=== PATIENT | male | born 1965 | race Caucasian/White ===

== ENCOUNTER 2021-01-22 17:20 | Emergency (ER) | payer BC, SELFPAY ==
[2021-01-22 17:29] VITALS: BP 142/81; PULSE 107; RESP 24; TEMP 37.1; O2SAT 98; BMI 35.2
[2021-01-22 17:34] VITALS: BP 142/80; PULSE 107; RESP 22; TEMP 37.1; O2SAT 98; BMI 27.3
--- NOTE | 2021-01-22 17:45 | HMH.EDUTC ---
[facility] Disposition Clinical Impression: Pneumonia Qualifiers: Pneumonia type: due to unspecified organism Laterality: unspecified laterality Lung location: unspecified part of lung Qualified Code(s): J18.9 - Pneumonia, unspecified organism Disposition: Home, Self-Care Condition on Discharge: Good Instructions: Pneumonia-Adult Additional Instructions: Stop the amoxicillin that you are on. Start the augmentin (amoxicillin/clavulanate) and the azithromycin (z-pack). Don't start the oral steroids (medrol dose pack) until tomorrow. Continue to take the tessalon perles and loratidine as directed. Follow up with your primary care doctor in 24 to 48 hours from now for a recheck. GO TO THE ER FOR ANY WORSENING SYMPTOMS OR CONCERNS) Prescriptions: Amoxicillin/Potassium Clav [Augmentin 875-125 Tablet] 1 tab PO Q12H 10 Days #20 tab Transmission Status: Received by [id number] methylPREDNISolone [Medrol] 4 mg PO DIRECTED 6 Days #21 tab.ds.pk Transmission Status: Received by [id number] Azithromycin [Z-Leonel 250mg Tab*] 250 mg PO UD DOSE PK #6 tab Transmission Status: Received by [id number] Referrals: Arleen Au [Primary Care Provider] - Time of Disposition: 18:26 Medical Decision Making - Medical Records Medical records reviewed: No: I reviewed the patient's medical records. - Mahamed Inquiry Pt receiving controlled substance: No Vital Signs: 01/22/21 17:29 01/22/21 17:34 01/22/21 18:21 Temperature 98.8 F 98.8 F 98.8 F Temperature Source Oral Oral Oral Pulse Rate 90 Pulse Rate [Radial] 107 H 107 H Respiratory Rate 24 22 20 Blood Pressure 140/70 Blood Pressure [Right Arm] 142/81 H 142/80 H Blood Pressure Mean [Right Arm] 101 100 Blood Pressure Source Automatic Cuff Blood Pressure Source [Right Arm] Automatic Cuff Blood Pressure Position Sitting Blood Pressure Position [Right Arm] Sitting 02 Sat by Pulse Oximetry 98 98 Oxygen Delivery Method Room Air Room Air Room Air Orders (Tests/Meds): ED MEDICATIONS Discontinued Medications Generic Name Dose Route Start Last Admin Trade Name Freq PRN Reason Stop Dose Admin Ceftriaxone Sodium 1 gm 01/22/21 18:13 01/22/21 18:21 Ceftriaxone 1gm Vial IM 01/22/21 18:14 1 gm ONCE ONE Administration Protocol Lidocaine HCl 0 ml 01/22/21 18:13 01/22/21 18:21 Lidocaine 1% 5ml Pf Vial IM 01/22/21 18:14 2.1 ml ONCE ONE Administration Methylprednisolone Sodium Succinate 125 mg 01/22/21 18:13 01/22/21 18:21 Methylprednisolone Sod Succ 125mg Vial IM 01/22/21 18:14 125 mg ONCE ONE Administration ORDERS Category Date Time Status Chest XR 2 view (NOT portable) [XR chest 2V] Stat Exams 01/22/21 17:49 Taken - Radiology Data #1 Image(s): Chest Image Reviewed: Yes I reviewed the patient's radiology image Preliminary Findings: No Infiltrates Seen [facility] HPI - General Stated complaint: Congestion;Cough Time Seen by Provider: 01/22/21 17:45 Mode of Arrival: Ambulatory Source of Information: Patient Limitations: No Limitations Description of Symptoms (Recalled from Triage Doc. by RN): TO ED PER [facility] WITH C/O COUGH, CHEST CONGESTION X3 DAYS. PT SEEN AT AN URGENT CARE YESTERDAY AND GIVEN SCRIPT FOR AMOX. PT STATES HAS TAKEN 3 TABS SINCE FILLED. PT DENIES FEVER, CHILLS. HEENT Symptoms (Recalled from RN notes): Yes Resp Symptoms (Recalled from RN notes): No Skin Symptoms (Recalled from RN notes): No MS Symptoms (Recalled from RN notes): No Functional Status (Recalled from RN notes): na - History of Present Illness Provider Complaint: He states that he has had a cough and shortness of breath for the past 2 days. He has a history of getting pneumonia easily. - Related Data Previous Rx's Medication Instructions Recorded Amoxicillin/Potassium Clav 1 tab PO Q12H 10 Days #20 tab 01/22/21 [Augmentin 875-125 Tablet] Azithromycin [Z-Leonel 250mg Tab*] 250 mg PO UD
--- NOTE | 2021-01-22 17:49 | XR_ITS ---
PROCEDURE: XR CHEST 2V CLINICAL HISTORY: cough, short of breath COMPARISON: No exams were available for comparison FINDINGS: The cardiomediastinal silhouette and pulmonary vascularity are within normal limits. Minor multifocal ill distinct infiltrates noted in the right mid and left lower zones. No lobar consolidation, pleural effusions or pneumothorax. No acute bony abnormalities. IMPRESSION: Minor multifocal in distinct infiltrates in the right mid and left lower zones. Minor atypical infection/inflammation should be considered. Dictated by: Mónica Louis 01/23/2021 08:15 Mónica Louis in OV 01/23/2021 08:15
[2021-01-22 18:21] VITALS: BP 140/70; PULSE 90; RESP 20; TEMP 37.1; O2SAT 98
== END 2021-01-22 18:35 | disposition home or self-care (01) ==
PROVIDERS: Emergency Provider Nurse Practitioner Family; PCP Internal Medicine
DX: J18.9 Pneumonia, unspecified organism (principal)
CPT/HCPCS: 71046; 96372; 99202; G0463

== ENCOUNTER 2022-03-06 19:50 | Emergency (ER) | payer BC, SELFPAY ==
[2022-03-06 20:00] VITALS: BP 144/94; PULSE 97; RESP 19; TEMP 37.1; O2SAT 97; BMI 36.1
[2022-03-06 20:37] VITALS: BP 144/94; PULSE 97; RESP 19; TEMP 37.1; O2SAT 97
[2022-03-06 20:40] LABS: Chloride 100 mmol/L (98-107); Potassium 3.9 mmoL/L (3.5-5.1); Sodium 136 mmol/L (136-145)
[2022-03-06 20:43] LABS: Anion Gap 10.9 mEq/L (5-15); Basophils # 0.1 K/mm3 (0-0.2); Basophils % 1.6 % (0.1-2.0); Blood Urea Nitrogen 10 mg/dl (9-20); Calcium 9.5 mg/dl (8.4-10.2); Carbon Dioxide 29 mmol/L (22.0-30.0); Creatinine Clearance Estimated 131 mL/min (50-200); Eosinophils # 0.2 K/mm3 (0.0-0.4); Eosinophils % 2.4 % (0.1-12.0); Estimated Glomerular Filt Rate 78 ml/min (>60); GFR (African American) 94 ML/MIN (>60); Glucose 332 mg/dl (74-100); Hematocrit 47.8 % (42.0-52.0); Hemoglobin 16.9 g/dL (14.1-18.0); Lymphocytes # 1.7 K/mm3 (0.7-4.5); Lymphocytes % 19.8 % (10-50); Mean Corpuscular HGB Conc 35.5 g/dL (31.8-35.4); Mean Corpuscular Hemoglobin 33.2 pg (27.0-31.2); Mean Corpuscular Volume 93.6 fl (80-94); Mean Platelet Volume 8.2 fl (7.4-10.4); Monocytes # 0.5 K/mm3 (0.1-1.0); Neutrophils # 6.1 K/mm3 (1.8-7.8); Neutrophils % 70.2 % (37.0-80.0); Platelet Count 218 K/mm3 (142-424); Red Cell Distribution Width 14.5 % (11.5-17.5); White Blood Count 8.8 K/mm3 (4.8-10.8)
--- NOTE | 2022-03-06 20:58 | HMH.EDUTC ---
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 Take tylenol or ibuprofen for pain or fever. Take the medications as directed. Follow up with your regular doctor WITHIN 72 HOURS FOR A RECHECK OF YOUR FOOT. GO TO THE ER FOR ANY WORSENING SYMPTOMS MAKE SURE THAT YOU ARE MONITORING AND CONTROLLING YOUR BLOOD SUGARS WELL YOU POSSIBLY CAN. DIABETICS WITH UNCONTROLLED BLOOD SUGARS ARE LIKELY TO HAVE MORE COMPLICATIONS. Prescriptions: Sulfamethoxazole/Trimethoprim [Bactrim DS tablet] 1 each PO BID 10 Days #20 tab Transmission Status: Received by [id number] Mupirocin [Bactroban 2% Ointment 22gm tube] 1 applicatio TP TID 7 Days #1 gm Transmission Status: Received by [id number] cephALEXin [cephALEXin 500mg capsule] 500 mg PO Q6H 10 Days #40 cap Transmission Status: Received by [id number] Referrals: Arleen Au [Primary Care Provider] - Barbara Godinez DPM [Staff Physician] - Time of Disposition: 21:02 Medical Decision Making - Medical Records Medical records reviewed: No: I reviewed the patient's medical records. - Mahamed Inquiry Pt receiving controlled substance: No Vital Signs: 03/06/22 20:00 03/06/22 20:37 Temperature 98.7 F 98.7 F Temperature Source Oral Pulse Rate 97 H Pulse Rate [Right Brachial] 97 H Respiratory Rate 19 19 Blood Pressure 144/94 H Blood Pressure [Right Arm] 144/94 H Blood Pressure Mean [Right Arm] 110 Blood Pressure Source [Right Arm] Automatic Cuff Blood Pressure Position [Right Arm] Sitting 02 Sat by Pulse Oximetry 97 Oxygen Delivery Method Room Air - Lab Data Lab results reviewed: Yes: I reviewed the patient's lab results. Lab Results 03/06/22 20:28: WBC 8.8, RBC 5.10, Hgb 16.9, Hct 47.8, MCV 93.6, MCH 33.2 H, MCHC 35.5 H, RDW 14.5, Plt Count 218, MPV 8.2, Neut % (Auto) 70.2, Lymph % (Auto) 19.8, [place] % (Auto) 6.0, Eos % (Auto) 2.4, Baso % (Auto) 1.6, Neut # (Auto) 6.1, Lymph # (Auto) 1.7, [place] # (Auto) 0.5, Eos # (Auto) 0.2, Baso # (Auto) 0.1 03/06/22 20:28: Sodium 136, Potassium 3.9, Chloride 100, Carbon Dioxide 29, Anion Gap 10.9, BUN 10, Creatinine 1.00, Estimated Creat Clear 131, Estimated GFR 78, Est GFR ( Amer) 94, Glucose 332 H, Calcium 9.5 Result diagrams: 03/06/22 20:28 03/06/22 20:28 Orders (Tests/Meds): ED MEDICATIONS Discontinued Medications Generic Name Dose Route Start Last Admin Trade Name Cristian PRN Reason Stop Dose Admin Ceftriaxone Sodium 1 gm 03/06/22 20:18 03/06/22 20:35 Ceftriaxone 1gm Vial IM 03/06/22 20:19 1 gm ONCE ONE Administration Lidocaine HCl 0 ml 03/06/22 20:18 03/06/22 20:35 Lidocaine 1% 5ml Pf Vial IM 03/06/22 20:19 2 ml ONCE ONE Administration [facility] [place] HPI - General Stated complaint: type II diabetes, left foot red swelling Time Seen by Provider: 03/06/22 20:00 Mode of Arrival: Ambulatory Source of Information: Patient Limitations: No Limitations Description of Symptoms (Recalled from Triage Doc. by RN): PATIENT C/O SWELLING AND REDNESS TO LEFT FOOT X 2 DAYS HEENT Symptoms (Recalled from RN notes): No Resp Symptoms (Recalled from RN notes): No Skin Symptoms (Recalled from RN notes): No MS Symptoms (Recalled from RN notes): Yes Functional Status (Recalled from RN notes): WNL - History of Present Illness Provider Complaint: He is here with complaints of redness and warmth of his left great toe up to the mid-foot. He is a d
== END 2022-03-06 21:06 | disposition home or self-care (01) ==
PROVIDERS: Emergency Provider Nurse Practitioner Family; PCP Internal Medicine
DX: L03.116 Cellulitis of left lower limb (principal); E11.42 Type 2 diabetes mellitus with diabetic polyneuropathy
CPT/HCPCS: 80048; 85025; 96372; 99212; G0463; J0696

== ENCOUNTER 2023-04-15 17:52 | Emergency (ER) | payer BC, SELFPAY ==
[2023-04-15 18:10] VITALS: BP 149/98; PULSE 84; RESP 18; TEMP 36.9; O2SAT 98; BMI 35.4
--- NOTE | 2023-04-15 18:27 | XR_ITS ---
PROCEDURE INFORMATION: Exam: XR Left Foot Exam date and time: 04/15/2023 6:42 PM Age: 57 years old Clinical indication: Other: Wound; Additional info: Wound on toe TECHNIQUE: Imaging protocol: Radiologic exam of the left foot. Views: 3 or more views. COMPARISON: No relevant prior studies available. FINDINGS: Bones/joints: No acute fracture or dislocation. No lytic destructive lesions to suggest osteomyelitis. Prominent plantar calcaneal spur. Arthritis at the 1st metatarsophalangeal joint with lateral joint narrowing, periarticular spurs, sclerosis, and some likely mild subcortical cystic changes. Soft tissues: The soft tissue wound is poorly delineated on x-ray. No radiopaque foreign bodies in the soft tissues. No significant soft tissue emphysema. Mild soft tissue swelling. Some posterior plantar soft tissue calcifications. IMPRESSION: 1. No acute fracture or dislocation. 2. No findings of osteomyelitis. 3. Arthritis of the 1st MTP joint. 4. Prominent plantar calcaneal spur, and adjacent posterior plantar fascial calcifications suggesting history of chronic fasciitis. 5. Soft tissue swelling.
--- NOTE | 2023-04-15 18:35 | EXP.UTC ---
Discharge Plan Disposition Patient Disposition: Home, Self-Care Condition: Good Prescriptions Prescriptions: New clindamycin HCl 300 mg capsule 300 mg PO Q8H 10 Days Qty: 30 0RF mupirocin 2 % ointment 1 applic topical BID Qty: 22 0RF Rx Instructions: apply to ulcer on toe twice a day with dressing changes No Action gabapentin 400 mg capsule 800 mg PO HS Label Comments: TAKE 2 CAPSULES BY MOUTH AT BEDTIME gabapentin 300 mg capsule 300 mg PO DAILY Label Comments: TAKE 1 CAPSULE BY MOUTH IN THE MORNING Ozempic 1 mg/dose (4 mg/3 mL) pen injector 1 mg SQ WEEKLY Referrals Follow up/Referrals: Arleen Au [Primary Care Provider] - See instructions Marlene Baxter APRN [Nurse Practitioner] - See instructions (Call office for appointment) Barbara Godinez DPM [Staff Physician] - See instructions (Call office for appointment) Activity Restrictions/Add. Instructions Additional Instructions/Restrictions: Clean wound as directred twice daily then apply topical medication and apply dressing Take oral antibiotics as prescribed Follow up with your Family Doctor for recheck of foot next week Call Podiatry and make appoitnment Use post op shoe as discussed to help off load the weight on your toe to aid in healing until seen by your PCP or Podiatry Straight to ER if any worsening symptoms Clinical Impressions Clinical Impression: Diabetic foot ulcer Instructions Patient Instructions: DI for Diabetic Foot Ulcer, Clindamycin, Mupirocin Discharge ED Provider: Alva Cramer [facility] [place] HPI General Stated complaint: spot on LT foot,, diabetic Mode of Arrival: Ambulatory Source of Information: Patient Limitations: No Limitations Time Seen by Provider: 04/15/23 18:20 Description of Symptoms (Recalled from Triage Doc. by RN): PATIENT C/O SORE UNDER LEFT GREAT TOE X 2 DAYS. PATIENT REPORTS DIABETES HEENT Symptoms (Recalled from RN notes): No Resp Symptoms (Recalled from RN notes): No Skin Symptoms (Recalled from RN notes): Yes MS Symptoms (Recalled from RN notes): No Functional Status (Recalled from RN notes): WNL History of Present Illness Provider Complaint: Patient states that he is a diabetic and has some neuropathy in in his feet States that he noticed a sore on his left great toe about two days ago States he tried to get into his PCP but wasnt able to get in for a few weeks so he came in here to get it checked and get some antibiotics for it States that he is unsure when it may have happened as he cannot look down there well Related Data Home Medications Medication Instructions Recorded Confirmed gabapentin 300 mg capsule 300 mg PO DAILY . 04/15/23 04/15/23 gabapentin 400 mg capsule 800 mg PO HS . 04/15/23 04/15/23 semaglutide 1 mg/dose (4 mg/3 mL) 1 mg SQ WEEKLY Diabetes 04/15/23 04/15/23 subcutaneous pen injector (Ozempic) Previous Rx's Medication Instructions Recorded clindamycin HCl 300 mg capsule 300 mg PO Q8H 10 days #30 caps 04/15/23 mupirocin 2 % topical ointment 1 applic topical BID #22 grams 04/15/23 Allergies Allergy/AdvReac Type Severity Reaction Status Date / Time No Known Allergies Allergy Verified 03/06/22 20:11 Worker's Comp Is this a Worker's Comp case?: No [facility] Disclaimer: The information contained in this section may have been updated after the patient was seen, as this information can be updated by other users. Medical History (Updated 04/15/23 @ 19:37 by Alva Cramer APRN) Diabetes mellitus, type 2 Social History Smoking Status: Unknown if ever smoked alcohol intake: never current occupational status: other Travel in the last 8 weeks: None ROS Obtained: Yes All systems reviewed & no additional complaints except as documented and Yes Systems reviewed as appropriate & no additional complaints except as documented Constitutional Constitutional: Reports system reviewed and no additional complaints, except as
--- NOTE | 2023-04-15 19:40 | PC.NURSE ---
NEOSPORIN, DRY DRESSING, AND POST-OP SHOE APPLIED TO LEFT GREAT TOE/FOOT AT THIS TIME
[2023-04-15 19:45] VITALS: BP 149/98; PULSE 84; RESP 18; TEMP 36.9; O2SAT 98
== END 2023-04-15 19:47 | disposition home or self-care (01) ==
PROVIDERS: Emergency Provider Nurse Practitioner; PCP Internal Medicine
DX: E11.621 Type 2 diabetes mellitus with foot ulcer (principal); Z79.85 Long-term (current) use of injectable non-insulin antidiabetic drugs
CPT/HCPCS: 73630; 99212; 99214; G0463

== ENCOUNTER → 2023-04-28 08:30 | Outpatient (CLI) | payer BC, SELFPAY | LOC: LAB.DROPOF 04-29 06:37 | PROVIDERS: Visit Provider Nurse Practitioner Family | DX: E11.621 Type 2 diabetes mellitus with foot ulcer (principal); L97.509 Non-pressure chronic ulcer of other part of unspecified foot with unspecified severity; Z79.84 Long term (current) use of oral hypoglycemic drugs | CPT/HCPCS: 87070; 87077; 87186; 87205 ==

== ENCOUNTER → 2023-05-05 12:38 | Outpatient (CLI) | payer BC, SELFPAY ==
--- NOTE | 2023-05-05 | US_ITS ---
FINAL REPORT CLINICAL HISTORY: ULCER LEFT GREAT TOE DM COMPARISON: None FINDINGS: ANKLE-BRACHIAL PRESSURE INDICES Pressure indices are as follows: RIGHT LOWER EXTREMITY: Ankle-brachial pressure index: 1.1 Comments: Normal LEFT LOWER EXTREMITY: Ankle-brachial pressure index: 1.2 Comments: Normal IMPRESSION: No evidence of significant obstructive peripheral vascular disease of the lower extremities Reviewed, Interpreted and Dictated by Ronak Wright III, MD Transcribed by Liliana Acevedo Authenticated and [facility]
== END ==
LOC: RT 12:40
PROVIDERS: PCP Internal Medicine; Visit Provider Nurse Practitioner Family
DX: E11.621 Type 2 diabetes mellitus with foot ulcer (principal); L97.529 Non-pressure chronic ulcer of other part of left foot with unspecified severity
CPT/HCPCS: 93923

== ENCOUNTER 2023-12-29 11:52 | Outpatient (CLI) | payer BC, SELFPAY ==
[2023-12-29 13:31] LABS: Iron 119 ug/dL (49-181)
[2023-12-29 13:41] LABS: Total Iron Binding Capacity 305 ug/dL (261-462)
[2023-12-29 14:08] LABS: Ferritin 520 ng/ml (17.9-464)
== END 2023-12-29 23:59 ==
LOC: LAB 11:56
PROVIDERS: PCP Internal Medicine; Visit Provider Internal Medicine Medical Oncology
DX: E83.118 Other hemochromatosis (principal)
CPT/HCPCS: 36415; 82728; 83540; 83550